=== PATIENT | male | born 1935 | race Two or more races ===

== ENCOUNTER 2018-10-14 07:00 | Day surgery (SDC) | payer OTHER ==
[~2018-10-14] VITALS: Ht 172.7 cm; Wt 67.1 kg
[~2018-10-14 07:00] MED LIST: AMILODIPINE PO; IBRERSARTAN PO; OMEPRAZOLE20 MG PO; SYNTH PO
[2018-10-14] MEDS ORDERED: NORVASC5 MG PO (11:19)
[2018-10-14] MEDS ORDERED: AVAPRO300 MG PO (11:20)
[2018-10-14] MEDS ORDERED: LEVO-T25 MCG PO (11:20)
== END 2018-10-15 08:00 | disposition home or self-care (01) ==
LOC: CIR.AMB 07:00 → EDSTATUS 07:45 → SURH 07:45 → SURG 17:53 → O/R 17:53 → CIR.AMB 10-15 08:00 → SURG 10-15 13:55
DX: D30.02 Benign neoplasm of left kidney (principal); N28.1 Cyst of kidney, acquired

== ENCOUNTER 2018-10-22 15:48 | Emergency (ER) | payer OTHER ==
[~2018-10-22] VITALS: Ht 172.7 cm; Wt 67.1 kg
[~2018-10-22 15:48] MED LIST changes: +AVAPRO300 MG PO; +LEVO-T25 MCG PO; +NORVASC5 MG PO
[2018-10-22] MEDS ORDERED: SYNTHROID50 MCG (16:05)
[2018-10-22] MEDS ORDERED: INTEGRA F CAPS1 EACH (16:05)
[2018-10-22] MEDS ORDERED: ARICEPT10 MG (16:06)
== END 2018-10-22 18:40 | disposition home or self-care (01) ==
LOC: ER 15:48
DX: D64.89 Other specified anemias (principal); Z90.5 Acquired absence of kidney

== ENCOUNTER 2021-04-08 14:55 | Outpatient (CLI) | payer OTHER ==
[~2021-04-08 14:55] MED LIST changes: +ARICEPT10 MG; +INTEGRA F CAPS1 EACH; +SYNTHROID50 MCG
== END 2021-04-08 15:04 | disposition home or self-care (01) ==
LOC: RAD 14:55
DX: R07.89 Other chest pain (principal); Z01.818 Encounter for other preprocedural examination